=== PATIENT | male | born 1955 | race Caucasian/White ===

== ENCOUNTER 2021-01-31 06:38 | Day surgery (SDC) | payer MEDICARE, MEDICAID ==
[~2021-01-31] VITALS: Ht 175.3 cm; Wt 93.3 kg
--- NOTE | ~2021-01-31 | HEMODYNAMI ---
PATIENT:PLACIDO LEIJA MEDICAL RECORD: [id number] : 55 LOCATION:[facility] ADMISSION DATE: 01/31/21 Generatedon:18:41 Patient name: PLACIDO LEIJA Patient #: [id number] SSN: [id number] : 1955 Date of study: 01/31/2021 Page: Of Hemodynamic Procedure Report Patient Data Patient Demographics Procedure consent was obtained First Name: PLACIDO Gender: Male Last Name: LISS : 1955 Patient #: [id number] Age: 65 year(s) Race: SSN: [id number] Additional ID: [id number] Contact details [address]: [address] [place] [address] State: [place] City: [place] Zip code: [address] Past Medical History Performed procedures and imaging results Date Procedure Procedure Results Comments 12/12/2020 Stress testing Positive->Intermediate with SPECT MPI risk Allergies Allergen Reaction Date Comments Reported Other allergy 01/31/2021 CEPHALEXIN, CODEINE, PCN, FLU VACCINE Admission Admission Data Admission Date: 01/31/2021 Admission Time: 6:38 Arrival Date: 01/31/2021 Arrival Time: 0:00 Admit Source: Other Insurance Payor: Private health insurance [facility] #: [id number] Height (in.): 69 BSA: 2.08 (m2) Height (cm.): 175.26 BMI: 29.98 (kg/m2) Weight (lbs.): 203 Weight (kg.): 92.08 Lab Results Lab Result Date: 01/31/2021 Lab Result Time: 0:00 Biochemistry Name Units Result Min Max BUN mg/dl 21 --(----)-* 7 18 Creatinine mg/dl 1.2 --(---*)-- 0.6 1.3 eGFR ml/min 64.57647 *-(----)-- 90 120 NONAFRICAN Procedure Procedure Types Cath Procedure Diagnostic Procedure LHC LHC w/Coronaries Sedation Charges Moderate Sedation 10-24 minutes Procedure Description Procedure Date Procedure Date: 01/31/2021 Procedure Start Time: 8:22 Procedure End Time: 8:39 Procedure Staff Name Function Brooks Rivero MD Performing Physician Alanna Angela RN Nurse Beatriz Mcclure RT Scrub Neda Obregon RT Monitor Procedure Data Cath Procedure Fluoroscopy Diagnostic fluoroscopy Total fluoroscopy Time: 3.8 time: 3.8 min min Diagnostic fluoroscopy Total fluoroscopy dose: 635 dose: 635 mGy mGy Contrast Material Contrast Material Type Amount (ml) Isovue 370 72 Entry Location Entry Primary Successful Side Size Upsize Upsize Entry Closure Cavanaugh ccessful Closure Location (Fr) 1 (Fr) 2 (Fr) Remarks Device Remarks Radial Right 6 Fr Mechanical artery Short Compression Estimated blood loss: 5 ml Diagnostic catheters Device Type Used For End Catheter Placement DIAGNOSTIC Hamilton 110cm 5 Procedure Fr catheter ([id number]) DIAGNOSTIC Tawanda 110cm Procedure 5Fr catheter ([id number]) Procedure Complications No complications Procedure Medications Medication Administration Route Dosage Oxygen etCO2 Nasal cannula 2 l/min Lidocaine 2% added to field 20 Heparin Flush Bag added to field 2 bags (1000units/500ml NS) 0.9% NaCl I.V. 100 ml/hr Radial Cocktail I.A. 1 syringe (Verapamil 2mg/Nitro 400mcg/Heparin 1500units) Versed I.V. 1 mg Fentanyl I.V. 50 mcg Versed I.V. 1 mg Fentanyl I.V. 50 mcg Versed I.V. 1 mg Hemodynamics Rest BSA: 2.08 (m2) O2 Consumption: Estimated: 235.1 (ml/min) O2 Consumption indexed: Estimated:113.03 (ml/min/m) Heart Rate: 61 (bpm) Pressure Samples Time Site Value (mmHg) Purpose Heart Use Rate(bpm) 8:26 LV 125/26,34 Snapshot 68 Gradients Valve Time Site Site Mean SEP/DFP Peak To Heart Use 1 2 (mmHg) (sec/min) Peak Rate (mmHg) (bpm) Aortic 8:26 LV AO 70 Snapshots Pre Cath Intra NCS Post Cath Vital Signs Time Heart Resp SPO2 etCO2 NIBP (mmHg) Rhythm Pain Sedation Rate (ipm) (%) (mmHg) Status Level (bpm) 8:01:31 62 14 98 17.2 160/98(128) NSR 0 (11) 10(A) , No pain 8:05:50 62 14 95 23.9 135/98(115) NSR 0 (11) 10(A) , No pain 8:10:04 63 12 97 23.2 141/92(124) NSR 0 (11) 10(A) , No pain 8:14:15 65 13 93 9.7 136/87(107) NSR 0 (11) 10(A) , No pain 8:18:26 64 11 93 16.4 129/81(109) NSR 0 (11) 9(A) , No pain 8:22:33 66 12 94 10.4 120/93(105) NSR 0 (11) 9(A) , No pain 8:26:43 70 11 92 13.4 124/81(104) NSR 0 (11) 9(A) , No pain 8:30:55 66 10 94 24.7 126/85(99) NSR 0 (11) 9(A) , No pain 8:35:07 67 11 94 0 131/87(98) NSR 0 (11) 10(A) , No pain 8:38:44 62 10 97 1.4 131/87(98) NSR 0 (11) 9(A) , No pain Medications Time Medication Route Dose Verified Delivered Reason Notes Effectiveness by by 8:00:33 Oxygen etCO2 2 l/min Brooks Buffie used for Nasal Mat Angela RN procedure cannula 8:00:43 Lidocaine 2% added 20ml Brooks Brooks for local to vial Mat Rivero MD anesthetic field 8:00:50 Heparin Flush added 2 bags Brooks Brooks used for Bag to Mat Rivero MD procedure (1000units/500ml field NS) 8:00:59 0.9% NaCl I.V. 100 Brooks Buffie Per ml/hr Mat Angela RN physician 8:14:25 Versed I.V. 1 mg Brooks Buffie for sedation Mat Angela RN 8:14:31 Fentanyl I.V. 50 mcg Brooks Buffie for sedation Mat Angela RN 8:19:50 Versed I.V. 1 mg Brooks Buffie for sedation Mat Angela RN 8:21:54 Fentanyl I.V. 50 mcg Brooks Buffie for sedation Mat Angela RN 8:23:06 Radial Cocktail I.A. 1 Brooks Brooks for (Verapamil syringe Mat Rivero MD vasodilation 2mg/Nitro 400mcg/Heparin 1500units) 8:26:46 Versed I.V. 1 mg Brooks Buffie for sedation Mat Angela RN Procedure Log Time Note 7:33:24 Informed consent obtained and on chart 7:33:43 Diagnostic Cath Status : Elective 7:33:51 Arrival Date: 01/31/2021 12:00:00 AM 7:33:53 Admit Source: Other 7:33:58 Insurance Payor : Private health insurance 7:34:18 Patient Height : 69 inches 7:34:21 Patient Weight : 203 lbs 7:35:12 ACC Patient presents with Stable Angina CCS Anginal Class 2--Slight limitation of ordinary activity. 7:35:15 Procedure Status Elective Heart Cath (OP). 7:35:17 Time tracking: Regular hours (M-F 7:00 - 5:00) 7:35:25 Plan of Care:Hemodynamics will remain stable., Cardiac rhythm will remain stable., Comfort level will be maintained., Respiratory function will remain adequate., Patient/ family verbilizes understanding of procedure., Procedure tolerated without complication., Recovers from procedure without complications.. 7:35:33 H&P Date Dictated: 01/05/2021 Within 30 days and on chart.. 7:35:35 Pre-procedure instructions explained to patient. 7:35:36 Pre-op teaching completed and patient verbalized understanding. 7:35:37 Family unavailable. 7:35:39 Patient NPO since Midnight. 7:36:02 Patient allergic to Other allergyCEPHALEXIN, CODEINE, PCN, FLU VACCINE 7:37:19 Lab results pending. 7:37:21 Alarms reviewed by R. N. 7:37:21 Sharps counted by scrub and verified by R.N. 7:38:05 Stress Test: yes; abnormal INFERIOR 7:45:39 Lab Result : eGFR NONAFRICAN 64.87247 ml/min 7:45:39 Lab Result : Creatinine 1.2 mg/dl 7:45:39 Lab Result : BUN 21 mg/dl 7:46:00 Alanna Angela RN sent for patient. Start room use. 7:49:00 Patient received from Pre/Post Procedure Room to CCL 1 Alert and oriented. Tansferred to table in Supine position. 7:49:01 Warm blankets applied, and carleen hugger turned on for patient comfort. 7:49:02 Correct patient and procedure confirmed by team. 7:49:03 ECG and BP/O2 sat monitors applied to patient. 7:49:04 Full Disclosure recording started 8:00:21 Vital chart was started 8:00:33 Oxygen 2 l/min etCO2 Nasal cannula was administered by Alanna Angela RN; used for procedure; Verbal order read back and verified. 8:00:43 Baseline sample Acquired. 8:00:43 Lidocaine 2% 20ml vial added to field was administered by Brooks Rivero MD; for local anesthetic; Verbal order read back and verified. 8:00:48 Rhythm: sinus rhythm 8:00:50 Heparin Flush Bag (1000units/500ml NS) 2 bags added to field was administered by Brooks Rivero MD; used for procedure; Verbal order read back and verified. 8:00:53 Is the patient allergic to Iodine/contrast media? No. 8:00:54 Was the patient premedicated? Yes 8:00:55 Is patient on blood thinner?No 8:00:56 Patient diabetic? No. 8:00:58 If diabetic: On Metformin? N/A 8:00:59 0.9% NaCl 100 ml/hr I.V. was administered by Alanna Angela RN; Per physician; Verbal order read back and verified. 8:00:59 ----Pre-sedation anethsthesia assessment.---- 8:01:09 Previous problem with sedation/anesthesia? Yes SOME HALLUCINATIONS 8:01:11 Snore? Yes 8:01:13 Sleep apnea? Unknown 8:01:14 Deviated septum? No 8:01:15 Opens mouth fully? Yes 8:01:16 Sticks out tongue? Yes 8:01:18 Airway obstruction? No ? 8:01:21 Dentures? No ? 8:01:24 Pre procedure: right dorsailis pedis pulse 1+ Palpable, but thready & weak; easily obliterated 8:01:27 Modified Josiah's test Ulnar < 7 seconds 8:01:29 Patient pain scale 0/10 ?. 8:01:35 IV patent on arrival in left antecubital with 0.9% NaCl at KVO. 8:01:53 Risk of Mortality: 0.1 8:01:55 Risk of blood transfusion: 0.1 8:01:57 Risk of JOSHUA: 0.5 8:02:01 Right Radial & Right Groin area was prepped with chlora-prep and draped in sterile fashion 8:02:07 Use device set Radial Dx or PCI 8:02:08 ACIST Syringe (83035) opened to sterile field. 8:02:08 Medline Cath Pack ([id number]) opened to sterile field. 8:02:09 Bag Decanter (2002S) opened to sterile field. 8:02:10 ACIST Hand Control (58802) opened to sterile field. 8:02:10 ACIST Manifold (43368) opened to sterile field. 8:02:12 MBrace Wrist Support ([id number]) opened to sterile field. 8:02:13 NEEDLE Cook 21G 4cm Radial ([id number]) opened to sterile field. 8:02:15 EMERALD Guide Wire (502-069) opened to sterile field. 8:02:15 SHEATH 6FR RAIN ([id number]) opened to sterile field. 8:11:49 --------ALL STOP TIME OUT------ 8:11:49 Final Timeout: patient, procedure, and site verified with staff and physician. All members of the team are in agreement. 8:11:51 Right Radial & Right Groin site verified by team. 8:11:54 Fire Safety Assessment: A--An alcohol-based skin anteseptic being used preoperatively., C--Open oxygen or nitrous oxide is being used., D--An ESU, laser, or fiber-optic light is being used. 8:11:58 Physical assessment completed. ASA score P 2 - A patient with mild systemic disease as per Brooks Rivero MD. 8:12:01 2) 60-89 Mildly reduced kidney function, and other findings (as for stage 1) point to kidney disease. 8:12:03 Maximum allowable contrast dose (3.7 X eGFR X 0.75)178 ml. 8:12:07 Sedation plan: IV Moderate Sedation Medication:Versed, Fentanyl 8:14:25 Versed 1 mg I.V. was administered by Alanna Angela RN; for sedation; Verbal order read back and verified. 8:14:31 Fentanyl 50 mcg I.V. was administered by Alanna Angela RN; for sedation; Verbal order read back and verified. 8:19:50 Versed 1 mg I.V. was administered by Alanna Angela RN; for sedation; Verbal order read back and verified. 8:20:05 Procedure started. 8:21:54 Fentanyl 50 mcg I.V. was administered by Alanna Angela RN; for sedation; Verbal order read back and verified. 8:22:00 Local anesthetic to right radial artery with Lidocaine 2% by Brooks Rivero MD.INITIAL ACCESS ONLY 8:22:43 A 6 Fr Short sheath was inserted into the Right Radial artery 8:23:06 Radial Cocktail (Verapamil 2mg/Nitro 400mcg/Heparin 1500units) 1 syringe I.A. was administered by Brooks Rivero MD; for vasodilation; Verbal order read back and verified. 8:23:31 Zero performed for pressure channel P1 8:24:59 A DIAGNOSTIC Hamilton 110cm 5 Fr catheter (377645) was advanced over the wire and used for Procedure. 8:25:38 LV gram done using MARIE 8:26:14 LV hemodynamics recorded. 8:26:17 Injector settings: Ml/sec: 5, Volume: 15, 8:26:31 EF : 45 % 8:26:46 Versed 1 mg I.V. was administered by Alanna Angela RN; for sedation; Verbal order read back and verified. 8:28:22 RCA angiography performed. 8:28:25 Injector settings: Ml/sec: 3, Volume: 6, 8:29:38 UNABLE TO ENGAGE LCA CHANGING GUIDE CATHETERS. 8:29:42 Catheter exchanged over wire. 8:30:40 A DIAGNOSTIC ClickScanShare 110cm 5Fr catheter (522555) was advanced over the wire and used for Procedure. 8:31:16 LCA angiography performed. 8:31:19 Injector settings: Ml/sec: 3, Volume: 6, 8:31:36 ACCDominant side:Left 8:36:29 ZEPHYR REGULAR TR BAND (018787) opened to sterile field. 8:36:42 Sheath removed intact; hemostasis achieved with Mechanical Compression to the Right Radial artery. 8:36:44 Procedure ended.(Physican Out) 8:36:54 Fluoroscopy time 03.80 minutes. 8:36:58 Fluoroscopy dose: 635 mGy 8:36:58 Flurop Dose total: 635 8:37:06 Dose Area Product 30175 mGy/cm. 8:37:11 Contrast amount:Isovue 370 72ml. 8:37:13 Maximum allowable dose exceeded? No. 8:37:14 Sharps counted by scrub and verified by R.N. 8:37:18 [place] band inflated with 10cc of air. 8:37:22 Post Procedure Pulses reassessed and unchanged 8:37:25 Post procedure: right dorsailis pedis pulse 1+ Palpable, but thready & weak; easily obliterated. 8:37:28 Post-procedure physical assessment completed. ASA score P 2 - A patient with mild systemic disease as per Brooks Rivero MD. 8:37:31 Post procedure rhythm: unchanged. 8:37:33 Estimated blood loss: 5 ml 8:37:35 Post procedure instruction explained to patient.Patient verbalizes understanding. 8:37:36 Patient needs reinforcement of post procedure teaching. 8:37:54 Procedure type changed to Cath procedure, Diagnostic procedure, LHC, C w/Coronaries, Sedation Charges, Moderate Sedation 10-24 minutes 8:38:21 Procedure and supply charges have been captured, reviewed, submitted and are correct. 8:38:34 Procedure Complication : No complications 8:38:44 [facility] Findings: MVD- CABG consult 8:38:51 Operative report dictated upon procedure completion. 8:38:52 See physician's report for complete and final results. 8:39:40 Report given to Pre/Post Procedure Room. 8:39:46 Patient transfered to Pre/Post Procedure Room with Stretcher. 8:39:49 Procedure ended. 8:39:49 Full Disclosure recording stopped 8:39:57 End room use (Document Last) 8:40:44 End room use (Document Last) 8:41:04 End room use (Document Last) 8:41:20 Vital chart was stopped Device Usage Item Name Manufacture Quantity Catalog Hospital Part Current Minima l Lot# / Number Charge Number Stock Stock Serial# Code ACIST Acist 1 17972 981673 545915 685111 20 Yillio (37024) Omnia Media Inc Medline Medline 1 [id number] 611893 49758 220648 5 Cath Pack ([id number]) Bag Microtek 1 2002S 203257 77350 820348 5 Decanter Medical Inc. () ACIST Hand Acist 1 08055 204469 858522 985472 5 Control Medical (25115) Systems Inc ACIST Acist 1 18153 558420 031355 246413 5 Manifold Medical (63414) Systems Inc MBrace Advanced 1 140-0250-00 896596 44150 975564 5 Wrist Vascular Support Dynamics ([id number]) NEEDLE Cook Cook Medical 1 P80934 988115 578575 328165 5 21G 4cm Radial (W97371) EMERALD Cardinal 1 502-455 074681 012867 439269 5 Guide Wire Health (502455) SHEATH 6FR Cardinal 1 5841013 714881 7571402 013776 5 [facility] Health (6285516) DIAGNOSTIC Terumo 1 40-5013 898294 770170 561878 5 Hamilton 110cm 5 Fr catheter (501373) DIAGNOSTIC Terumo 1 40-5023 431142 997397 176836 5 Tawanda 110cm 5Fr catheter (963807) ZEPHYR Cardinal 1 786099 733597 0220266 165786 5 REGULAR TR Health BAND (470831) Signature Audit [place] Stage Time Signature Unsigned Intra-Procedure 01/31/2021 Neda Obregon 8:40:44 AM RT(R) Intra-Procedure 01/31/2021 Alanna Angela RN 8:41:04 AM Intra-Procedure 01/31/2021 Brooks Rivero MD 8:41:18 AM [id number] [place] [address]
[2021-01-31 07:17] VITALS: BP 150/97; Ht 175.3 cm; Wt 93.3 kg
[2021-01-31 07:38] LABS: BASOPHILS 0.5 % (0-2); EOSINOPHILS 2.9 % (0-7); HEMATOCRIT 44.4 % (42.0-54.0); IMMATURE GRANULOCYTES 0.1 % (0-5); LYMPHOCYTE ABS# 2.27 10x3/uL (1.32-3.57); MCH 29.7 pg (26.0-34.0); MCHC 33.8 g/dL (31.0-37.0); MCV 87.9 fL (80.0-100.0); MEAN PLATELET VOLUME 10.3 fL (7.4-10.4); NEUTROPHIL ABS# 4.14 10x3/uL (1.78-5.38); NEUTROPHILS 56.5 % (40-80); PLATELET COUNT 207 10x3/uL (130-400); RBC 5.05 10x6/uL (4.20-6.10); RDW 12.9 % (11.5-14.5); WBC 7.3 10x3/uL (4.8-10.8)
[2021-01-31 07:40] LABS: ANION GAP 15.4 mmol/L (8-16); CALCIUM 8.7 mg/dL (8.5-10.1); CARBON DIOXIDE 22.5 mmol/L (21.0-32.0); CHOL - HDL RATIO 3.8 ratio (2.3-4.9); CREATININE - SERUM 1.2 mg/dL (0.6-1.3); POTASSIUM - SERUM 3.9 mmol/L (3.5-5.1)
[2021-01-31] MEDS ORDERED: LIPITOR10 MG PO (07:51)
[2021-01-31] MEDS ORDERED: HYDROCHLOROTH12.5 M1 PO (07:51)
[2021-01-31] MEDS ORDERED: COZAAR100 MG PO (07:51)
--- NOTE | 2021-01-31 08:57 | NUR ---
PT ARRIVES TO ROOM 8 VIA STRETCHER FROM S/P HEART CATH. SEE SUPERVISOR WINDING DEPARTMENT, IV INFUSING PER ORDERS, DENIES PAIN OR NEEDS, PT REQUEST SIP OF PO FLUID /GIVEN. CALL LIGHT WITHIN REACH
--- NOTE | 2021-01-31 09:17 | NUR ---
RESTING QUIETLY, DENIES PAIN OR NEEDS AT PRESENT, AAOX3, VSS , SR , RIGHT WRIST WITH ZBAND IN PLACE NO OOZING OR BLEEDING NOTED, RADIAL AND BRACHIAL PULSE PALPABLE, CAP REFILL WNL, IV INFUSING PER ORDERS, PLAN OF CARE GIVEN, SPOUSE AT BEDSIDE, CALL LIGHT WITH IN REACH.
--- NOTE | 2021-01-31 09:32 | NUR ---
PT IS AWAKE AND ALERT, SPOUSE AT BEDSIDE, VSS, SR, RIGHT WRIST WITH ZBAND INPLACE, NO OOZING OR BLEEDING NOTED, RADIAL AND BRACHIAL PULSE PALPABLE, CAP REFILL WNL, MOVES ALL DIGITS, PT DENIES PAIN OR NEEDS, IV INFUSING PER ORDERS, CALL LIGHT WITHIN REACH.
--- NOTE | 2021-01-31 09:47 | NUR ---
RESTING QUIETLY, VSS, SR, RIGHT WRIST WITH ZBAND INPLACE C/D/I, NO BLEEDING OR OOZING NOTED, RADIAL PULSE PALPABLE, CAP REFILL WNL, DENIES PAIN OR NEEDS, IV INFUSING PER ORDERS, SPOUSE AT BEDSIDE,CALL LIGHT WITHIN REACH
--- NOTE | 2021-01-31 10:00 | NUR ---
DR GRIFFIN AT BEDSIDE NO NEW ORDERS RECIEVED
--- NOTE | 2021-01-31 10:30 | NUR ---
2CC AIR REMOVED FROM RIGHT ZBAND NO BLEEDING OR OOZING NOTED, RADIAL PULSE PALPABLE, CAP REFILL WNL, DENIES PAIN OR NEEDS, IV INFUSING PER ORDERS, VSS, SR, CALL LIGHT WITHIN REACH, QUESTIONS AND CONCERNS ADDRESSEDS, SPOUSE AT BEDSIDE
--- NOTE | 2021-01-31 10:45 | NUR ---
RIGHT WRIST WITH AIR REMOVED FROM ZBAND , NO BLEEDING OR OOZING NOTED, RADIAL PULSE PALPABLE, CAP REFILL WNL, MOVES ALL DIGITS, 20G IV CATHETER REMOVED FROM LEFT FOREARM INTACT 2 X 2 DRESSING PLACED, PT DENIES PAIN OR NEEDS, DISCHARGE TEACHING REVIEWED PT AND SPOUSE VERBALIZED UNDERSTANDING., VSS, SR, PT AMBULATES TO BATHROOM VOIDS WITH OUT DIFFICULTY. QUESTIONS ADDRESSED.
--- NOTE | 2021-01-31 11:00 | NUR ---
PT DISCHARGED PER ORDERS, INSTRUCTONS REVIEWED VERBALIZED UNDERSTANDING, PT TAKEN TO PRIVATE VEHICLE VIA WHEELCHAIR TO CARE OF SPOUSE.
== END 2021-01-31 11:00 | disposition home or self-care (01) ==
LOC: D.CATH 06:38
PROVIDERS: ATTEND Internal Medicine Cardiovascular Disease
DX: I20.9 Angina pectoris, unspecified (principal); R94.39 Abnormal result of other cardiovascular function study

== ENCOUNTER 2021-02-01 16:09 | Inpatient (IN) | payer MEDICARE, MEDICAID ==
[~2021-02-01] VITALS: Ht 175.3 cm; Wt 94.0 kg
[~2021-02-01 16:09] MED LIST: COZAAR100 MG PO; HYDROCHLOROTH12.5 M1 PO; LIPITOR10 MG PO
[2021-02-02] MEDS ORDERED: NITROQUICK0.4 MG SL (10:30)
--- NOTE | 2021-02-02 11:39 | NUR ---
NOTIFIED MERRY GRANADOS OF PTS BP READINGS LT- 144/99, RT- 137/109 THESE WERE TAKEN WHEN PT ARRIVED RETOOK RT BP BEFORE LEAVING 173/93.
[2021-02-02 12:52] LABS: ALBUMIN 4.3 g/dL (3.4-5.0); ANION GAP 13.1 mmol/L (8-16); BILIRUBIN - TOTAL 0.48 mg/dL (0.2-1.3); CALCIUM 9.7 mg/dL (8.5-10.1); CARBON DIOXIDE 28.6 mmol/L (21.0-32.0); CREATININE - SERUM 1.4 mg/dL (0.6-1.3); PHOSPHOROUS 3.5 mg/dL (2.5-4.9); POTASSIUM - SERUM 4.7 mmol/L (3.5-5.1); PROTEIN - SERUM 7.9 g/dL (6.4-8.2); T4 THYROXIN - FREE 0.77 ng/dL (0.76-1.46); THYROID STIMULATING HORMONE 1.57 uIU/mL (0.36-3.74)
[2021-02-02 12:54] LABS: BACTERIA FEW HPF (NONE SEEN); BILIRUBIN NEGATIVE (NEGATIVE); KETONE NEGATIVE (NEGATIVE); NITRITE NEGATIVE (NEGATIVE); SQUAMOUS EPITHELIAL RARE HPF (0-4); UROBILINOGEN NORMAL mg/dL (< 2)
[2021-02-02 12:56] LABS: EOSINOPHILS 2.1 % (0-7); HEMATOCRIT 48.7 % (42.0-54.0); HEMOGLOBIN 16.4 g/dL (13.5-17.5); IMMATURE GRANULOCYTES 0.3 % (0-5); LYMPHOCYTE ABS# 1.91 10x3/uL (1.32-3.57); LYMPHOCYTES 30.5 % (15-50); MCH 30.3 pg (26.0-34.0); MCHC 33.7 g/dL (31.0-37.0); MEAN PLATELET VOLUME 11.3 fL (7.4-10.4); MONOCYTES 6.4 % (2-11); NEUTROPHIL ABS# 3.75 10x3/uL (1.78-5.38); NEUTROPHILS 59.7 % (40-80); PLATELET COUNT 232 10x3/uL (130-400); RBC 5.41 10x6/uL (4.20-6.10); RDW 12.9 % (11.5-14.5); WBC 6.3 10x3/uL (4.8-10.8)
[2021-02-02 12:58] LABS: APTT 26.5 SECONDS (22.8-39.4); INR 1.02 (0.85-1.17); PROTIME 12.3 SECONDS (11.6-15.0)
[2021-02-06] VITALS (35 sets, daily range): BP systolic 93–130; BP diastolic 54–89; BMI 30.5; BMI 30.6
[2021-02-06] MEDS ORDERED: LOPRESSOR25 MG PO (05:58)
[2021-02-06] MEDS ORDERED: SKELAXIN800 MG PO (05:59)
--- NOTE | 2021-02-06 13:00 | NUR ---
PT ARRIVED TO UNIT AT 1235. CONNECTED TO EPIDEMIOLOGY INVESTIGATOR. ETT SIZE 8.0 23 AT LIP LINE RIGHT. VENT SETTINGS A/C, TV 550, R-14, FIO 60%, PEEP 5. RIGHT IJ CVL NOTED WITH DRESSING C/D/I. PLASMOLYTE INFUSING AT 100ML/HR, RICARDO AT 0.6MCG/KG/MIN. RHONA TO RIGHT WRIST SECURED IN PLACE WITH WRIST PROTECTOR. MIDSTERNAL INSICION THONY. SUBSTERNAL CT CONNECTED TO 20CM SUCTION, NO AIR LEAK NOTED. BERTIN DRAIN IN PLACE. TPM WIRES CONNECTED BUT CURRENTLY OFF. RLE HARVEST SITES WRAPPED IN [place]BAN DRESSING. BIPIN'S AND SCD'S ON LLE. DYER CATHETER SECURED IN PLACE WITH STAT LOCK TO RIGHT THIGH. SAFETY MEASURES IN PLACE. NURSE AT BEDSIDE FOR CLOSE MONITORING.
[2021-02-06 13:04] LABS: ANION GAP 12.2 mmol/L (8-16); CALCIUM 7.8 mg/dL (8.5-10.1); CARBON DIOXIDE 27.3 mmol/L (21.0-32.0); CREATININE - SERUM 1.6 mg/dL (0.6-1.3); POTASSIUM - SERUM 3.5 mmol/L (3.5-5.1)
[2021-02-06 13:06] LABS: BASOPHILS 0.2 % (0-2); EOSINOPHILS 0.5 % (0-7); HEMATOCRIT 38.2 % (42.0-54.0); HEMOGLOBIN 12.7 g/dL (13.5-17.5); IMMATURE GRANULOCYTES 0.3 % (0-5); LYMPHOCYTES 12.4 % (15-50); MCH 30.1 pg (26.0-34.0); MCHC 33.2 g/dL (31.0-37.0); MCV 90.5 fL (80.0-100.0); MEAN PLATELET VOLUME 10.6 fL (7.4-10.4); MONOCYTES 8.7 % (2-11); NEUTROPHIL ABS# 11.33 10x3/uL (1.78-5.38); NEUTROPHILS 77.9 % (40-80); RBC 4.22 10x6/uL (4.20-6.10); RDW 13.1 % (11.5-14.5); WBC 14.5 10x3/uL (4.8-10.8)
[2021-02-06 13:07] LABS: PLATELET COUNT 162 10x3/uL (130-400)
[2021-02-06 13:08] LABS: APTT 32.6 SECONDS (22.8-39.4); INR 1.25 (0.85-1.17); PROTIME 14.5 SECONDS (11.6-15.0)
--- NOTE | 2021-02-06 13:12 | NUR ---
ABG RESULTS REPORTED TO DR. ROCHA.
--- NOTE | 2021-02-06 13:13 | NUR ---
20MEQ POTASSIUM TO BE GIVEN PER DR. ROCHA'S ORDER.
--- NOTE | 2021-02-06 14:25 | NUR ---
DR. BURNS AWARE OF CONSULT.
--- NOTE | 2021-02-06 15:53 | NUR ---
ABG RESULTS AFTER 1HR OF SPONTANEOUS BREATHING REPORTED TO DR. ROCHA.
--- NOTE | 2021-02-06 16:06 | NUR ---
DR. ROCHA IN UNIT. OKAY TO EXTUBATE.
--- NOTE | 2021-02-06 16:10 | NUR ---
EXTUBATED AT THIS TIME. PLACED ON 3L O2 VIA NC.
--- NOTE | 2021-02-06 17:03 | NUR ---
PT CONTINUES TO RATE PAIN 10/10 ON LEFT SIDE AFTER PAIN MED ADMINISTRATION. DR. ROCHA NOTIFIED. ORDER TO GIVE MORPHINE 2MG IV X ONE AT THIS TIME.
--- NOTE | 2021-02-06 18:15 | NUR ---
INTRUCTED ON HOW TO USE INSENTIVE SPIROMETER. PULLS 500-750.
[2021-02-07] VITALS (23 sets, daily range): BP systolic 101–136; BP diastolic 58–77; Ht 175.3 cm; Wt 94.0 kg
[2021-02-07 04:23] LABS: HEMATOCRIT 36.4 % (42.0-54.0); HEMOGLOBIN 12.1 g/dL (13.5-17.5); MCH 29.8 pg (26.0-34.0); MCHC 33.2 g/dL (31.0-37.0); MCV 89.7 fL (80.0-100.0); MEAN PLATELET VOLUME 11.4 fL (7.4-10.4); RBC 4.06 10x6/uL (4.20-6.10); RDW 13.3 % (11.5-14.5); WBC 11.1 10x3/uL (4.8-10.8)
[2021-02-07 04:37] LABS: ALBUMIN 2.7 g/dL (3.4-5.0); ANION GAP 18.1 mmol/L (8-16); BILIRUBIN - TOTAL 0.61 mg/dL (0.2-1.3); CARBON DIOXIDE 20.5 mmol/L (21.0-32.0); CREATININE - SERUM 1.4 mg/dL (0.6-1.3); POTASSIUM - SERUM 3.6 mmol/L (3.5-5.1); PROTEIN - SERUM 5.1 g/dL (6.4-8.2)
[2021-02-07 04:38] LABS: CALCIUM 6.9 mg/dL (8.5-10.1)
--- NOTE | 2021-02-07 13:49 | NUR ---
REMOVED PT'S ART LINE FROM RIGHT RADIAL AND 2OG PIV FROM LEFT HAND. RIGHT HAND WARM, PULSE +2, STRONG AND REGUALR WITH CAP REFILL <3 SECONDS. WILL CONTINUE TO MONITOR. VSS. PT RESTING IN CHAIR.
--- NOTE | 2021-02-07 14:31 | OP ---
PATIENT NAME: PLACIDO LEIJA MEDICAL RECORD: [id number] :55 LOCATION:D.CVI D.CV07 ADMISSION DATE:02/06/21 SURGEON: MARVIN ROCHA MD DATE OF OPERATION: 02/06/2021 SURGEON: Marvin Rocha MD PROCEDURE PERFORMED: 1. Coronary artery bypass graft times 4 (left internal mammary artery to LAD, reverse saphenous vein graft from aorta to first obtuse marginal, aorta to the second obtuse marginal, aorta to right coronary artery). 2. Endoscopic saphenous vein harvest. PREOPERATIVE DIAGNOSIS: Coronary artery disease. POSTOPERATIVE DIAGNOSIS: Coronary artery disease. ANESTHESIA: General endotracheal anesthesia. ESTIMATED BLOOD LOSS: Total cardiopulmonary bypass with Cell Saver retransfusion. COMPLICATIONS: None. SPECIMENS: None. CONDITION: Stable. DISPOSITION: CV ICU. OPERATIVE FINDINGS: 1. Normal appearing heart. 2. LAD 1.5 mm with moderate disease. 3. First obtuse marginal 2.0 mm with proximal plaque. 4. Second obtuse marginal 1.5 mm. 5. Right coronary artery 1.5 mm, somewhat smaller than expected. INDICATION: Coronary artery disease. PROCEDURE IN DETAIL: The patient was brought to the operative suite. General anesthesia was obtained. The patient was prepped and draped. Greater saphenous vein harvested from the right lower extremity utilizing endoscopic technique. Side branches were divided with electrocautery. The vessel was ligated proximally and distally and removed. The side branches were clipped or tied and thinned sites were oversewn. Median sternotomy incision was made. Subcutaneous tissue divided with electrocautery. Sternum was divided with a saw. Left hemisternum was elevated. The left pleural cavity was entered. Left internal mammary artery and vein was taken down as a pedicle graft. Sternal retractor was placed. Pericardium was opened. Heparin was given. Aorta was cannulated. Dual stage venous cannula was inserted. The internal mammary was clipped distally and made ready for anastomosis. Activated clotting times were appropriately elevated. The patient was placed on cardiopulmonary OPERATIVE REPORT [id number] PLACIDO LEIJA bypass. Sites for distal anastomosis were selected. Antegrade cardioplegic cannula was inserted. The patient's temperature drifted downward to about 33 centigrade. Cross clamp was placed. Cardioplegia given antegrade and was repeated at 15 to 20 intervals including down the completed vein grafts. Distal anastomosis was performed in standard technique. Proximal anastomosis with single cross-clamp technique. The aortic root de-aired by removing the cross clamp, deairing the root, tying the proximal anastomosis, deairing the vein graft, and restoring the flow. Proximal and distal anastomotic sites inspected for bleeding. Single 6-0 and couple of the proximals. The patient resumed a spontaneous rhythm. Atrial and ventricular pacing wires were placed. The patient fully rewarmed and weaned from cardiopulmonary bypass and was stable. The patient was decannulated. The cannula sites were oversewn. Protamine was given. Thorough irrigation was undertaken. Graft lay appropriately. Hemostasis was ensured. Left chest was evacuated and irrigated. The internal mammary harvest site inspected for bleeding. Sternum was closed with wires. Fascia was closed. Subcutaneous tissues were closed. Skin was closed. Dermabond was placed. The needle and sponge counts were reported as correct and the patient was taken to the ICU in stable condition. TRANSINT:[id number] Voice Confirmation ID: [id number] DOCUMENT ID: [id number] MARVIN ROCHA MD at 1431 CC: VINNY GRIFFIN M.D. and KATHLEEN LUDWIG MD [id number] DICTATION DATE: 02/06/21 1234 DISTRIBUTOR SALES CONSULTANT: 02/06/21 1750 ADM IN [address] [place] [address]
--- NOTE | 2021-02-07 16:53 | NUR ---
CHEST TUBE REMOVED BY MD Jain WITHOUT COMPLICATION. VSS. WILL CONTINUE TO MONITOR
--- NOTE | 2021-02-07 17:16 | NUR ---
DYER CATH REMOVED @ 1500 PER ORDER. WILL CONTINUE TO MONITOR.
[2021-02-08] VITALS (22 sets, daily range): BP systolic 92–130; BP diastolic 47–72
[2021-02-08 04:21] LABS: HEMATOCRIT 33.3 % (42.0-54.0); HEMOGLOBIN 10.9 g/dL (13.5-17.5); MCH 29.9 pg (26.0-34.0); MCHC 32.7 g/dL (31.0-37.0); MCV 91.2 fL (80.0-100.0); RBC 3.65 10x6/uL (4.20-6.10); RDW 13.5 % (11.5-14.5)
[2021-02-08 04:36] LABS: ALBUMIN 2.8 g/dL (3.4-5.0); ANION GAP 12.5 mmol/L (8-16); BILIRUBIN - TOTAL 0.73 mg/dL (0.2-1.3); CARBON DIOXIDE 25.5 mmol/L (21.0-32.0); CREATININE - SERUM 1.7 mg/dL (0.6-1.3); PROTEIN - SERUM 5.8 g/dL (6.4-8.2)
--- NOTE | 2021-02-08 10:20 | NUR ---
REPORT GIVEN TO IBAN GRANADOS
[2021-02-09] VITALS (24 sets, daily range): BP systolic 93–139; BP diastolic 54–87
[2021-02-09 04:44] LABS: HEMATOCRIT 28.3 % (42.0-54.0); HEMOGLOBIN 9.2 g/dL (13.5-17.5); MCH 29.6 pg (26.0-34.0); MCHC 32.5 g/dL (31.0-37.0); RBC 3.11 10x6/uL (4.20-6.10); RDW 13.6 % (11.5-14.5); WBC 10.7 10x3/uL (4.8-10.8)
[2021-02-09 05:01] LABS: ALBUMIN 2.5 g/dL (3.4-5.0); BILIRUBIN - TOTAL 0.35 mg/dL (0.2-1.3); CALCIUM 8.2 mg/dL (8.5-10.1); CARBON DIOXIDE 24.9 mmol/L (21.0-32.0); CREATININE - SERUM 1.6 mg/dL (0.6-1.3); POTASSIUM - SERUM 3.9 mmol/L (3.5-5.1); PROTEIN - SERUM 5.8 g/dL (6.4-8.2)
--- NOTE | 2021-02-09 10:34 | NUR ---
PT RECIEVED IN AFIB, CONVERTED TO NSR BRIEFLY BEFORE RETURNING TO AFIB THEN APPROX 0900 CONVERTED TO NSR
--- NOTE | 2021-02-09 14:15 | TEE ---
PATIENT:PLACIDO LEIJA MEDICAL RECORD: [id number] LOCATION:[place] [address] AGE OF PATIENT: 65 ADMISSION DATE: 02/06/21 SEX: M REFERRING PHYSICIAN: INTERPRETING PHYSICIAN: DARIO ANGEL MD TRANSESOPHAGEAL ECHOCARDIOGRAM Date: 02/06/21 KATHE CHARGE Y INDICATIONS: CABG PREMEDICATIONS: PATIENT'S RESPONSE PROCEDURE DOPPLER MEASUREMENTS: LVIT LA PA RA LVOT RVOT Asc. Ao AV Gradient Peak AV Mean AV Area MV Gradient Peak MV Mean MV Area INTERPRETATION: Doppler: 2-D: COLOR FLOW DOPPLER NORMAL SALINE STUDY: MISCELLANOUS: DIAGNOSIS: PLAN: General Technician:3 Dr. Cabezas Boiling Tub Operator: Otoniel KOWALSKI COMMENTS: DATE OF SERVICE: 02/07/2021 PROCEDURE: Intraoperative KATHE. Preop shows normal LV wall motion, normal wall thickening, EF greater than or equal to 55%. Aortic valve is tricuspid. Good valve excursion. Left atrium appears normal. Mitral valve shows no prolapse. Trace MR. Postoperatively, normal wall motion, normal wall thickening. EF 55%. Aortic TRANSESOPHAGEAL ECHOCARDIOGRAM REPORT [id number] PLACIDO LEIJA valve is tricuspid, good valve excursion. Left atrium appears normal. Mitral valve appears normal. Trivial MR. TRANSINT:[id number] Voice Confirmation ID: [id number] DOCUMENT ID: [id number] at 1415 CC: [id number] DICTATION DATE: 02/07/21 1628 DUPLICATOR PUNCH OPERATOR: 02/08/21 0331 ADM IN [facility] [address] [place] [id number]
[2021-02-10] VITALS (23 sets, daily range): BP systolic 87–133; BP diastolic 56–83
[2021-02-10 03:39] LABS: BASOPHILS 0.2 % (0-2); HEMATOCRIT 28.9 % (42.0-54.0); HEMOGLOBIN 9.6 g/dL (13.5-17.5); IMMATURE GRANULOCYTES 0.2 % (0-5); LYMPHOCYTE ABS# 1.85 10x3/uL (1.32-3.57); LYMPHOCYTES 18.2 % (15-50); MCHC 33.2 g/dL (31.0-37.0); MCV 90.3 fL (80.0-100.0); MEAN PLATELET VOLUME 11.4 fL (7.4-10.4); MONOCYTES 9.2 % (2-11); NEUTROPHIL ABS# 7.24 10x3/uL (1.78-5.38); NEUTROPHILS 71.2 % (40-80); RDW 13.5 % (11.5-14.5); WBC 10.2 10x3/uL (4.8-10.8)
[2021-02-10 03:40] LABS: PLATELET COUNT 186 10x3/uL (130-400)
[2021-02-10 03:48] LABS: ALBUMIN 2.3 g/dL (3.4-5.0); ANION GAP 11.8 mmol/L (8-16); BILIRUBIN - TOTAL 0.53 mg/dL (0.2-1.3); CALCIUM 7.4 mg/dL (8.5-10.1); CARBON DIOXIDE 24.8 mmol/L (21.0-32.0); CREATININE - SERUM 1.3 mg/dL (0.6-1.3); MAGNESIUM - SERUM 2.6 mg/dL (1.8-2.4); PROTEIN - SERUM 5.8 g/dL (6.4-8.2)
[2021-02-10 03:55] LABS: POTASSIUM - SERUM 5.6 mmol/L (3.5-5.1)
[2021-02-10 11:16] LABS: ANION GAP 11.9 mmol/L (8-16); CALCIUM 8.3 mg/dL (8.5-10.1); CARBON DIOXIDE 25.5 mmol/L (21.0-32.0); CREATININE - SERUM 1.6 mg/dL (0.6-1.3)
[2021-02-10 11:17] LABS: POTASSIUM - SERUM 3.4 mmol/L (3.5-5.1)
--- NOTE | 2021-02-10 12:04 | NUR ---
Nutrition Follow-up: POD 4 CABG. Tolerating regular diet. Ate >50% of breakfast this AM. Denies N/V/C/D, chewing/swallowing difficulties. Diet: Regular WT: 203# (02/10); 207.2# (02/06) Last BM: 02/09 Labs noted: K+ 5.6 -> 3.4, Ca 7.4, Mg 2.6, Alb 2.3 Meds noted: Protonix, Senokot, Colace -Encourage PO intake and honor food preferences within diet restrictions. -RD follow-up: 02/13
--- NOTE | 2021-02-10 17:22 | NUR ---
1030-CASE MANAGEMENT NOTIFIED OF POSSIBLE DISCHARGE ON HOME O2
[2021-02-11] VITALS (21 sets, daily range): BP systolic 99–137; BP diastolic 45–86
[2021-02-11 05:14] LABS: BASOPHILS 0.3 % (0-2); EOSINOPHILS 1.7 % (0-7); HEMATOCRIT 29.5 % (42.0-54.0); HEMOGLOBIN 9.6 g/dL (13.5-17.5); IMMATURE GRANULOCYTES 0.4 % (0-5); LYMPHOCYTE ABS# 1.73 10x3/uL (1.32-3.57); LYMPHOCYTES 22.7 % (15-50); MCH 29.4 pg (26.0-34.0); MCHC 32.5 g/dL (31.0-37.0); MCV 90.2 fL (80.0-100.0); MONOCYTES 11.7 % (2-11); NEUTROPHIL ABS# 4.81 10x3/uL (1.78-5.38); NEUTROPHILS 63.2 % (40-80); PLATELET COUNT 212 10x3/uL (130-400); RBC 3.27 10x6/uL (4.20-6.10); RDW 13.6 % (11.5-14.5)
[2021-02-11 05:19] LABS: WBC 7.6 10x3/uL (4.8-10.8)
[2021-02-11 05:43] LABS: ALBUMIN 2.4 g/dL (3.4-5.0); ANION GAP 11.9 mmol/L (8-16); BILIRUBIN - TOTAL 0.51 mg/dL (0.2-1.3); CALCIUM 8.1 mg/dL (8.5-10.1); CREATININE - SERUM 1.4 mg/dL (0.6-1.3); POTASSIUM - SERUM 3.9 mmol/L (3.5-5.1)
--- NOTE | 2021-02-11 09:27 | NUR ---
AMBULATED WITH PHYSICAL THERAPY-HOME O2 TESTING IN PROGRESS-RESULT SUBMITTED TO CASE MANAGEMENT -PLACED ON
--- NOTE | 2021-02-11 11:01 | NUR ---
0930-AMBULATED IN HALLWAY FOR O2 TOLERANCE TEST-RESULTS SUBMITTED WITH CASE MANAGEMENT DR ROCHA AT BEDSIDE INFORMED OF ACIIVE HEMMORHOID-SMALL BRIGHT RED BLOOD VIA RECTUM-PT STATES CHRONIC ISSUE
--- NOTE | 2021-02-11 11:59 | NUR ---
DR BURNS AT BEDSIDE -PT CURRENTLY ON ROOM AIR-94% --INFORMED OF WALKING O2 TEST/RA RESULTS-
--- NOTE | 2021-02-11 15:15 | NUR ---
1430-PT SITTING IN CHAIR ON RM AIR-94%--AMBULATED WITH PHYSICAL THERAPY ON PORT SAT-DECREASED TO 86% WITH INCREASED RR 29-SR ON TELEMETRY-ASSISTED TO CHAIR-REMAINS ON ROOM AIR WITH STEADY INCREASE TO 94% SAT-PT STATED "WINDED"
--- NOTE | 2021-02-11 18:16 | NUR ---
ENTERED ROOM AND FOUND PT WITH LEFT NOSTRIL BLEEDING-STATED REMOVED A DRY MUCUS PLUG-ALSO STATED BLEEDING NOSE IS A CHRONIC ISSUE-STRESSED FOR PT TO REMAIN SITTING UP IN CHAIR UNTIL RESOLVED-PROVIDED SOFT GAUZE-PT MADE TAMPON AND PLACED IN NOSTRIL-LARGE TIP ON OUTSIDE OF NARE-ROOM AIR AT THIS TIME-SAT 95%--
[2021-02-12] VITALS (13 sets, daily range): BP systolic 104–137; BP diastolic 73–95
--- NOTE | 2021-02-12 01:20 | NUR ---
190- bedside shift report complete. patient's nosebleed has subsided with pressure. patient sitting up in chair without s/s of distress. no needs voiced at this time. 2119- Patient up ambulating in room. walked to the bathroom with minimal exertion. 2314- patient up to bathroom, ambulating without difficulty. mild dyspnea noted
[2021-02-12 04:33] LABS: BASOPHILS 0.3 % (0-2); EOSINOPHILS 1.7 % (0-7); HEMATOCRIT 29.7 % (42.0-54.0); HEMOGLOBIN 9.7 g/dL (13.5-17.5); IMMATURE GRANULOCYTES 0.5 % (0-5); LYMPHOCYTE ABS# 2.29 10x3/uL (1.32-3.57); LYMPHOCYTES 30.1 % (15-50); MCH 29.6 pg (26.0-34.0); MCHC 32.7 g/dL (31.0-37.0); MCV 90.5 fL (80.0-100.0); MEAN PLATELET VOLUME 10.1 fL (7.4-10.4); MONOCYTES 11.6 % (2-11); NEUTROPHIL ABS# 4.25 10x3/uL (1.78-5.38); NEUTROPHILS 55.8 % (40-80); PLATELET COUNT 238 10x3/uL (130-400); RBC 3.28 10x6/uL (4.20-6.10); RDW 13.3 % (11.5-14.5); WBC 7.6 10x3/uL (4.8-10.8)
[2021-02-12 05:07] LABS: ALBUMIN 2.4 g/dL (3.4-5.0); ANION GAP 14.5 mmol/L (8-16); BILIRUBIN - TOTAL 0.44 mg/dL (0.2-1.3); CALCIUM 7.9 mg/dL (8.5-10.1); CARBON DIOXIDE 24.4 mmol/L (21.0-32.0); CREATININE - SERUM 1.4 mg/dL (0.6-1.3); POTASSIUM - SERUM 3.9 mmol/L (3.5-5.1); PROTEIN - SERUM 6.1 g/dL (6.4-8.2)
--- NOTE | 2021-02-12 11:51 | MORECARE ---
CASE MANAGEMENT DISCHARGE SUMMARY PATIENT: PLACIDO LEIJA UNIT: [id number] ADM DATE: 02/06/21 AGE: 65 : 55 SEX: M ROOM/BED: [facility] AUTHOR: EUGENIE,DOC PHYSICIAN: REFERRING PHYSICIAN: DALLAS ROCHA MD DATE OF SERVICE: 02/12/21 Case Management Discharge Planning Summary DCP REVIEW SUMMARY ANTICIPATED D/C DATE: 02/13/2021 EXPECTED LOS : 7 CASE STATUS: DCP Initiated INITIAL REVIEW: 02/12/2021 INITIAL REVIEWER: Joyce Hoskins FINAL DISCHARGE DISPOSITION: : FINAL REVIEWER: FINAL REVIEW DATE: LACE: UPDATED BY: [id number]: Tori Nolasco on 02/06/21 14:10 CT QUESTION: ANSWER Length of Stay (Prior Admit): Less than 1 day Acute Admission: Inpatient Comorbidity: (1PT) DM no complications, Cerebrovascular Disease, Hx of PA, PVD, PUD Comorbidity Total Score 1 PT Emergency Room visits during previous 6 months: 0 Visits DCP Focus Questions & Answers QUESTION: ANSWER : PATIENT: PLACIDO LEIJA ENCOUNTER: [id number] MEDICAL RECORD#: [id number] ADMISSION DATE: 02/06/2021 DISCHARGE DATE: ATTENDING MD: DALLAS COOLEY : AGE: 65 MARITAL STATUS: M DC PLAN ID: [id number] FACILITY: [facility] PRINTED ON: 02/12/21 11:51 CT All edits/amendments must be made on the electronic document DICTATION DATE: 02/12/21 115 CEMENT SACK BREAKER: DM 02/12/21 115 RPT#: [id number] DC DATE: STATUS: ADM IN [facility] [address] [place] [address] END OF REPORT
[2021-02-12] MEDS ORDERED: PERCOCET 5-3251 TAB PO (11:53)
[2021-02-12] MEDS ORDERED: AMIODARONE HCL200 MG PO (11:54)
--- NOTE | 2021-02-12 12:02 | MORECARE ---
CASE MANAGEMENT DISCHARGE SUMMARY PATIENT: PLACIDO LEIJA UNIT: [id number] ADM DATE: 02/06/21 AGE: 65 : 55 SEX: M ROOM/BED: [facility] AUTHOR: EUGENIE,DOC PHYSICIAN: REFERRING PHYSICIAN: DALLAS ROCHA MD DATE OF SERVICE: 02/12/21 Case Management Discharge Planning Summary COMMENTS ENTERED DATE: 02/12/21 11:56 CT COMMENT TYPE: Discharge Planning REVIEWER: Joyce Hoskins CM met with patient and his spouse to discuss discharge planning/needs. He states he is independent with all ADL's and AIDL's. He states his will transport him home on discharge. He is not on any oxygen at this time. Primary nurse, Beau, states his room air oxygen with exertion was 92%. He does not qualify for home oxygen. His PCP is Rachna Tobra under Dr. Lakehsia Lacy. He has 4 steps to enter his home and no steps inside. 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 I discussed availability of DME and home health and he declines need. No needs identified at this time. CM will continue to follow and assist with discharge planning/needs. DCP REVIEW SUMMARY ANTICIPATED D/C DATE: 02/13/2021 EXPECTED LOS : 7 CASE STATUS: DCP Initiated INITIAL REVIEW: 02/12/2021 INITIAL REVIEWER: Joyce Hoskins FINAL DISCHARGE DISPOSITION: : FINAL REVIEWER: FINAL REVIEW DATE: LACE: UPDATED BY: [id number]: Tori Nolasco on 02/06/21 14:10 CT QUESTION: ANSWER Length of Stay (Prior Admit): Less than 1 day Acute Admission: Inpatient Comorbidity: (1PT) DM no complications, Cerebrovascular Disease, Hx of CT, PVD, PUD Comorbidity Total Score 1 PT Emergency Room visits during previous 6 months: 0 Visits DCP Focus Questions & Answers DCP Screen QUESTION: ANSWER High Risk Factors: : None Walking limitation: Patient stated self rated walking limitation present? : No Age: : 65 - 79 Prior living environment: : Lives with others Disability ranking: : Grade 1: No significant disability DCP Evaluation QUESTION: ANSWER Patient and/or caregiver agree upon recommended discharge plan? : Yes Patient's current cognitive status: : *Oriented to person, place, situation, time and present Patient gives permission to discuss discharge plans with: (name, relationship and number) : Beth Leija - spouse - [phone] Patient's ability to cope with chronic illness : d. No chronic illness Does the patient have the ability to pay for or attain post discharge needs / services? : Yes Functional screen assessment: : No issues identified Physical Status: : Independent with ADL's Equipment needed for post hospitalization: : None Is there a likelihood that the patient will require additional services to return to the preadmission environment? : No Living Arrangements: : Home with Spouse/Significant Other Results of this evaluation have been discussed with: : Spouse Results of this evaluation have been discussed with: : Patient Patient with capacity for self-care or can be cared for in same environment as prior to hospitalization? : Yes Baseline cognitive status: : *Oriented to person, place, situation, time and present Physical environment modification needed / anticipated for discharge: : No Preadmission facility can/cannot provide post hospital level of care needs: : Can - at same level of care as preadmission Medication Management: : Patient states can afford medications Pharmacy name(s): : [facility] Does Patient have transportation to get home and to follow-up medical appointments when discharged from the hospital? : Yes Would patient like to participate in any Care Coordination programs (if applicable): : Not applicable Does the patient have electricity at home? : Yes Does the patient have running water in their house? : Yes Equipment in use: : Other Other Equipment comments: : BP cuff and stethescope Mental health screen: : No mental health history Resources / Services in place: : None DCP Re-evaluation QUESTION: ANSWER Would patient like to participate in any Care Coordination programs (if applicable): : Not applicable PATIENT: PLACIDO LEIJA ENCOUNTER: [id number] MEDICAL RECORD#: [id number] ADMISSION DATE: 02/06/2021 DISCHARGE DATE: ATTENDING MD: DALLAS COOLEY : AGE: 65 MARITAL STATUS: M DC PLAN ID: [id number] FACILITY: [facility] PRINTED ON: 02/12/21 12:02 CT All edits/amendments must be made on the electronic document DICTATION DATE: 02/12/211201 AGRICULTURE SCIENTIST: BOB 02[birth year]1201 RPT#: [id number] DC DATE: STATUS: ADM IN [facility] [address] [facility] [place] [address] END OF REPORT
--- NOTE | 2021-02-12 15:31 | NUR ---
0930-O2 WALK TEST ON ROOM AIR-WITH PHYSICAL THERAPY-AMBULATED 100 PLUS FEET SAT 92%- 1015-DR ROCHA AT BEDSIDE-INFORMED OF SAME-DR LEIJA AT BEDSIDE-INFORMED OF SAME-SR ON MONITOR-MADE AWARE OF BLEEDING HEMMORHOID-PT STATED MINIMAL AND RESOLVING 1215-DR ROCHA SPOKE WITH PT REGARDING DISCHARGE DIRECTIONS, ANSWERED PT CONCERNS-R IJ DISCONTINUED PER POLICY-SUTURES REMOVED-DISCHARGE TEACHING INSTRUCTIONS DONE BASED ON DR ROCHA 8660-PT DISCHARGED IN CARE OF VIA WHEEL CHAIR
== END 2021-02-12 15:37 | disposition home or self-care (01) | DRG 236 ==
LOC: D.SDCHOLD 02-03 14:00 → D.CVICU 02-06 05:10 → D.SDCHOLD 02-06 05:10 → D.CVICU 02-06 11:44
PROVIDERS: Emergency Medicine; ADMIT Thoracic Surgery (Cardiothoracic Vascular Surgery); ATTEND Thoracic Surgery (Cardiothoracic Vascular Surgery)
PROC: 02100Z9 Bypass Coronary Artery, One Artery from Left Internal Mammary, Open Approach (ICD-10-PCS; 2021-02-06)
PROC: 06BP4ZZ Excision of Right Saphenous Vein, Percutaneous Endoscopic Approach (ICD-10-PCS; 2021-02-06)
PROC: 5A1221Z Performance of Cardiac Output, Continuous (ICD-10-PCS; 2021-02-06)
PROC: 021209W Bypass Coronary Artery, Three Arteries from Aorta with Autologous Venous Tissue, Open Approach (ICD-10-PCS; principal; 2021-02-06 07:30)
DX: I25.10 Atherosclerotic heart disease of native coronary artery without angina pectoris (principal); N17.9 Acute kidney failure, unspecified; D62 Acute posthemorrhagic anemia; E87.0 Hyperosmolality and hypernatremia; I10 Essential (primary) hypertension; E78.5 Hyperlipidemia, unspecified; N40.0 Benign prostatic hyperplasia without lower urinary tract symptoms; K21.9 Gastro-esophageal reflux disease without esophagitis; G89.29 Other chronic pain; M54.9 Dorsalgia, unspecified; Z87.891 Personal history of nicotine dependence; I48.91 Unspecified atrial fibrillation